=== PATIENT | male | born 1985 ===

== ENCOUNTER 2018-05-22 02:40 | Emergency (ER) | payer SELFPAY ==
[2018-05-22 02:50] VITALS: RESP 16
--- NOTE | 2018-05-22 03:42 | ED PDOC ---
HPI: Psych/Substance Abuse Time Seen by Provider: 05/22/18 02:44 Chief Complaint (Nursing): Alcohol Ingestion Chief Complaint (Provider): ETOH abuse - Denies complaints History Per: Patient History/Exam Limitations: no limitations Additional Complaint(s): 33 yo male with no medical problems presents for evaluation of alcohol abuse. Pt was drinking tonight and brought in by EMS for evaluation after "causing a disturbance". Pt calm in ER. Past Medical History Reviewed: Historical Data, Nursing Documentation, Vital Signs Vital Signs: Last Vital Signs Temp 98.7 F 05/22/18 02:47 Pulse 100 H 05/22/18 02:47 Resp 16 05/22/18 02:47 BP 125/81 05/22/18 02:47 Pulse Ox 100 05/22/18 02:47 - Medical History PMH: No Chronic Diseases - Surgical History Surgical History: No Surg Hx - Family History Family History: States: No Known Family Hx - Allergies Allergies/Adverse Reactions: Allergies Allergy/AdvReac Type Severity Reaction Status Date / Time No Known Allergies Allergy Verified 05/22/18 02:50 Review of Systems ROS Statement: Except As Marked, All Systems Reviewed And Found Negative Constitutional: Negative for: Fever, Chills Cardiovascular: Negative for: Chest Pain, Palpitations Respiratory: Negative for: Cough, Shortness of Breath Gastrointestinal: Negative for: Nausea, Vomiting, Abdominal Pain Genitourinary Male: Negative for: Dysuria, Frequency Musculoskeletal: Negative for: Neck Pain Physical Exam - Reviewed Nursing Documentation Reviewed: Yes Vital Signs Reviewed: Yes - Physical Exam Appears: Positive for: Well, Non-toxic, No Acute Distress Head Exam: Positive for: ATRAUMATIC, NORMAL INSPECTION, NORMOCEPHALIC Skin: Positive for: Normal Color, Warm, DRY Eye Exam: Positive for: Normal appearance ENT: Positive for: Normal ENT Inspection Neck: Positive for: Normal, Painless ROM Cardiovascular/Chest: Positive for: Regular Rate, Rhythm Respiratory: Positive for: Normal Breath Sounds. Negative for: Accessory Muscle Use, Respiratory Distress Gastrointestinal/Abdominal: Positive for: Normal Exam, Soft Back: Positive for: Normal Inspection Extremity: Positive for: Normal ROM Neurologic/Psych: Positive for: Alert, Oriented - ECG O2 Sat by Pulse Oximetry: 100 Pulse Ox Interpretation: Normal Medical Decision Making Medical Decision Making: AccuCheck - WNL Clear speech and steady gait at 0600. Disposition - Clinical Impression Clinical Impression: Alcohol abuse - Patient ED Disposition Is Patient to be Admitted: No - Disposition Disposition: Routine/Home Disposition Time: 05:33 Condition: STABLE Instructions: Effects of Alcohol on Your Health Forms: [facility] (Spanish)
[2018-05-22 06:59] VITALS: BP 122/60; PULSE 90; TEMP 97.7; O2SAT 99
== END 2018-05-22 06:57 | disposition home or self-care (01) ==
LOC: H.ER 02:40
DX: F10.10 Alcohol abuse, uncomplicated (principal)